=== PATIENT | female | born 1990 | race Caucasian/White ===

== ENCOUNTER 2016-10-14 16:36 | Emergency (ER) | payer OTHER ==
[~2016-10-14] VITALS: Ht 154.9 cm; Wt 88.7 kg
[~2016-10-14 16:36] MED LIST: AUGMENTIN500 MG PO; IBUPROFEN800 MG PO; KEFLEX750 MG PO; Motrin PO; NAPROSYN500 MG PO; NATALCARE RX1 TABLE1 PO; NOHOMEMEDS; NORCO 5/3251 TABLET PO; PRENATAL TABLE1 EAC3 PO; PROMETHAZINE HC25 M1 PO; RANITIDINE PO; SPRINTEC1 EACH PO; TORADOL10 MG PO; TYLENOL EXTRA500 MG PO; ULTRAM50 MG PO; ZOFRAN ODT4 MG PO; ZOFRAN4 MG PO
[2016-10-14 17:10] LABS: HEMATOCRIT 42.4 % (36.0-46.0); MCH 29.8 PG (29.0-34.0); MCHC 33.5 G/DL (30.0-36.0); MCV 89.1 FL (83-99); RBC DIS.WIDTH-CV 12.3 % (11.8-14.6); RBC DIS.WIDTH-SD 40.4 % (39-53); RED BLOOD COUNT 4.76 M/uL (3.80-5.20); WHITE BLOOD COUNT 12.2 K/uL (4.1-10.2)
[2016-10-14 17:18] LABS: CHLORIDE 103 mEq/L (99-109); SODIUM 136 mEq/L (136-147)
[2016-10-14 17:20] LABS: GLUCOSE 112 mg/dL (70-99)
[2016-10-14 17:22] LABS: ANION GAP 9 MEQ/L (2-14); TOTAL BILIRUBIN 0.3 mg/dL (0.0-1.0)
[2016-10-14 17:24] LABS: ALKALINE PHOSPHATASE 75 IU/L (3-129); GFR ESTIMATE (CALCULATED) > 59 mL/min/
[2016-10-14 17:25] LABS: UREA NITROGEN (BUN) 7 mg/dL (9-23)
[2016-10-14 17:33] LABS: QUANTITATIVE HCG < 4.0 MIU/ML
[2016-10-14 17:34] LABS: ADD MIUA? YES; BILIRUBIN NEGATIVE; BLOOD NEGATIVE; COLOR YELLOW ((YELLOW)); GLUCOSE (STRIP) NEGATIVE; KETONES NEGATIVE; LEUKOCYTES NEGATIVE; NITRITE NEGATIVE; PROTEIN (STRIP) 30; SPECIFIC GRAVITY 1.021 (1.000-1.030); UROBILINOGEN 0.2 MG/DL (0.2-1.0)
[2016-10-14 17:40] LABS: BACTERIA RARE /HPF; EPITHELIAL CELLS 2+ /HPF; MUCUS TRACE /LPF; UCUL ADDED? NO; WHITE BLOOD CELLS 0-5 /HPF (0-5)
[2016-10-14 17:48] LABS: LIPASE 10 U/L (1.0-51.0)
[2016-10-14 17:53] LABS: MEAN PLAT.VOLUME 12.5 uM^3 (9.5-12.4); PLATELET COUNT 205 K/uL (156-360)
[2016-10-14] MEDS ORDERED: ZOFRAN ODT4 MG PO (19:52)
[2016-10-14] MEDS ORDERED: BENTYL20 MG PO (19:52)
[2016-10-14] MEDS ORDERED: MOTRIN800 MG PO (20:12)
[2016-10-14] MEDS ORDERED: NORCO 7.5/321 TABLET PO (20:51)
[2016-10-14 21:02] VITALS: BP 122/67
== END 2016-10-14 21:02 | disposition home or self-care (01) ==
LOC: EME 16:36 → RME 16:36
DX: B34.9 Viral infection, unspecified (principal); K52.9 Noninfective gastroenteritis and colitis, unspecified; N20.0 Calculus of kidney; R31.29 Other microscopic hematuria; K21.9 Gastro-esophageal reflux disease without esophagitis; Z87.442 Personal history of urinary calculi
CPT/HCPCS: 74022; 74176; 80053; 81003; 83690; 84702; 85025; 85027; 87077; 87086; 87186; 87651 90; 99281; 99284; J0500

== ENCOUNTER 2016-12-21 18:55 | Inpatient (IN) | payer OTHER ==
[~2016-12-21] VITALS: Ht 154.9 cm; Wt 86.2 kg
[~2016-12-21 18:55] MED LIST changes: +BENTYL20 MG PO; +MOTRIN800 MG PO; +NORCO 7.5/321 TABLET PO
[2016-12-21 20:00] LABS: HEMATOCRIT 41.6 % (36.0-46.0); MCH 29.6 PG (29.0-34.0); MCHC 32.9 G/DL (30.0-36.0); MCV 89.8 FL (83-99); RBC DIS.WIDTH-CV 13.2 % (11.8-14.6); RBC DIS.WIDTH-SD 43.1 % (39-53); RED BLOOD COUNT 4.63 M/uL (3.80-5.20); WHITE BLOOD COUNT 21.4 K/uL (4.1-10.2)
[2016-12-21 20:15] LABS: ADD MIUA? YES; BILIRUBIN NEGATIVE; BLOOD NEGATIVE; COLOR YELLOW ((YELLOW)); GLUCOSE (STRIP) NEGATIVE; KETONES NEGATIVE; LEUKOCYTES SMALL; PROTEIN (STRIP) 30; SPECIFIC GRAVITY 1.016 (1.000-1.030); UROBILINOGEN 0.2 MG/DL (0.2-1.0)
[2016-12-21 20:19] LABS: CHLORIDE 101 mEq/L (99-109); SODIUM 134 mEq/L (136-147)
[2016-12-21 20:21] LABS: GLUCOSE 120 mg/dL (70-99)
[2016-12-21 20:22] LABS: ANION GAP 13 MEQ/L (2-14)
[2016-12-21 20:23] LABS: TOTAL BILIRUBIN 0.6 mg/dL (0.0-1.0)
[2016-12-21 20:23] LABS: EPITHELIAL CELLS RARE /HPF; MUCUS 1+ /LPF; UNCLASSIFIED CRYSTALS 2+ /HPF; WHITE BLOOD CELLS 30-40 /HPF (0-5)
[2016-12-21 20:25] LABS: ALKALINE PHOSPHATASE 76 IU/L (3-129); GFR ESTIMATE (CALCULATED) > 59 mL/min/
[2016-12-21 20:26] LABS: UREA NITROGEN (BUN) 7 mg/dL (9-23)
[2016-12-21 20:28] LABS: LIPASE 3 U/L (1.0-51.0)
[2016-12-21 20:35] LABS: QUANTITATIVE HCG < 4.0 MIU/ML
[2016-12-21 20:39] LABS: NITRITE POSITIVE
[2016-12-21 20:40] LABS: BACTERIA 4+ /HPF; UCUL ADDED? YES
[2016-12-21 21:06] LABS: HEMATOLOGY COMMENT 1 SN; MEAN PLAT.VOLUME 12.4 uM^3 (9.5-12.4); PLAT.SUFFICIENCY ADEQUATE; PLATELET COUNT 205 K/uL (156-360)
[2016-12-22] MEDS ORDERED: SPRINTEC1 EACH PO (00:51)
[2016-12-22] MEDS ORDERED: CITALOPRAM HBR10 MG PO (00:52)
[2016-12-22] MEDS ORDERED: TRAMADOL HCL50 MG PO (00:52)
[2016-12-22 03:06] VITALS: BP 108/59
[2016-12-22 07:26] VITALS: BP 94/53
[2016-12-22 09:24] LABS: HEMATOCRIT 37.5 % (36.0-46.0); MCH 30.2 PG (29.0-34.0); MCHC 33.1 G/DL (30.0-36.0); MCV 91.5 FL (83-99); MEAN PLAT.VOLUME 11.8 uM^3 (9.5-12.4); PLATELET COUNT 170 K/uL (156-360); RBC DIS.WIDTH-CV 13.2 % (11.8-14.6); RBC DIS.WIDTH-SD 44.4 % (39-53); WHITE BLOOD COUNT 14.8 K/uL (4.1-10.2)
[2016-12-22 09:25] LABS: CHLORIDE 105 mEq/L (99-109); POTASSIUM 3.9 mEq/L (3.7-5.4); SODIUM 138 mEq/L (136-147)
[2016-12-22 09:27] LABS: GLUCOSE 130 mg/dL (70-99)
[2016-12-22 09:29] LABS: ANION GAP 9 MEQ/L (2-14)
[2016-12-22 09:31] LABS: GFR ESTIMATE (CALCULATED) > 59 mL/min/
[2016-12-22 09:32] LABS: UREA NITROGEN (BUN) 7 mg/dL (9-23)
[2016-12-22 12:02] VITALS: BP 124/67
[2016-12-22 17:04] VITALS: BP 93/62
[2016-12-22 19:17] VITALS: BP 100/60
[2016-12-22 23:03] VITALS: BP 100/51
[2016-12-23 03:17] VITALS: BP 94/53
[2016-12-23 07:49] LABS: EOSINOPHIL (%) 0.1 % (0-5); HEMATOCRIT 32.8 % (36.0-46.0); IMMATURE GRANULOCYTE (%) 0.5 % (0.0-0.7); IMMATURE GRANULOCYTE COUNT 0.1 K/uL; INSTRUMENT ABS NEUTROPHIL CT 12.2 K/uL; LYMPHOCYTE COUNT 1.9 K/uL (1.0-2.8); MCH 29.7 PG (29.0-34.0); MCHC 32.6 G/DL (30.0-36.0); MCV 91.1 FL (83-99); MEAN PLAT.VOLUME 12.6 uM^3 (9.5-12.4); MONOCYTE (%) 7.3 % (3-12); MONOCYTE COUNT 1.1 K/uL (0-0.8); NEUTROPHIL (%) 79.4 % (45-76); NEUTROPHIL COUNT 12.2 K/uL (1.8-6.4); PLATELET COUNT 165 K/uL (156-360); RBC DIS.WIDTH-CV 13.1 % (11.8-14.6); RBC DIS.WIDTH-SD 43.4 % (39-53); WHITE BLOOD COUNT 15.3 K/uL (4.1-10.2)
[2016-12-23 08:00] VITALS: BP 103/66
[2016-12-23 08:34] LABS: CHLORIDE 106 mEq/L (99-109); SODIUM 138 mEq/L (136-147)
[2016-12-23 08:37] LABS: ANION GAP 7 MEQ/L (2-14)
[2016-12-23 08:39] LABS: GFR ESTIMATE (CALCULATED) > 59 mL/min/
[2016-12-23 08:40] LABS: UREA NITROGEN (BUN) 4 mg/dL (9-23)
[2016-12-23 08:43] LABS: GLUCOSE 77 mg/dL (70-99)
[2016-12-23 15:55] VITALS: BP 99/58
[2016-12-23 22:00] VITALS: BP 92/57
[2016-12-23 23:47] VITALS: BP 103/65
[2016-12-24 04:13] VITALS: BP 100/64
[2016-12-24] MEDS ORDERED: BACTRIM,SEPT1 TABLET PO (07:33)
[2016-12-24 09:01] LABS: HEMATOCRIT 32.9 % (36.0-46.0); MCH 30.1 PG (29.0-34.0); MCHC 32.2 G/DL (30.0-36.0); MCV 93.5 FL (83-99); MEAN PLAT.VOLUME 13.1 uM^3 (9.5-12.4); PLATELET COUNT 171 K/uL (156-360); RBC DIS.WIDTH-CV 13.4 % (11.8-14.6); RBC DIS.WIDTH-SD 46.3 % (39-53); RED BLOOD COUNT 3.52 M/uL (3.80-5.20)
[2016-12-24 09:08] LABS: WHITE BLOOD COUNT 9.9 K/uL (4.1-10.2)
[2016-12-24 11:18] LABS: ANION GAP 8 MEQ/L (2-14); CHLORIDE 102 MEQ/L (99-109); GFR ESTIMATE (CALCULATED) > 59 mL/min/; GLUCOSE 62 mg/dL (70-99); POTASSIUM 3.9 MEQ/L (3.7-5.4); SAMPLE HEMOLYSIS CHECK 0; SAMPLE ICTERIC CHECK 0; SAMPLE LIPEMIA CHECK 0; SODIUM 140 MEQ/L (136-147); UREA NITROGEN (BUN) 6 mg/dL (9-23)
== END 2016-12-24 11:20 | disposition home or self-care (01) | DRG 854 ==
LOC: EXP 18:55 → EME 18:55 → EDOF 12-22 01:45 → 2EASTP 12-22 02:05 → EDOF 12-22 02:05 → 2EASTP 12-22 03:04
PROVIDERS: Hospitalist; Internal Medicine
PROC: 0FT44ZZ Resection of Gallbladder, Percutaneous Endoscopic Approach (ICD-10-PCS; principal; 2016-12-22)
DX: A41.9 Sepsis, unspecified organism (principal); K80.10 Calculus of gallbladder with chronic cholecystitis without obstruction; N39.0 Urinary tract infection, site not specified; B96.20 Unspecified Escherichia coli [E. coli] as the cause of diseases classified elsewhere; E66.01 Morbid (severe) obesity due to excess calories; N20.0 Calculus of kidney; Z68.35 Body mass index [BMI] 35.0-35.9, adult; Z91.19 Patient's noncompliance with other medical treatment and regimen
CPT/HCPCS: 74176; 76705; 80048; 80053; 81003; 83605; 83690; 84702; 85025; 85027; 87040; 87077; 87086; 87186; 88304; 99281; 99285; J0131; J0330; J0690; J0696; J1100; J1170; J1644; J1885; J2250; J2270; J2405; J2710; J3010; J7030; J7050

== ENCOUNTER 2017-01-23 06:25 | Emergency (ER) | payer OTHER ==
[~2017-01-23] VITALS: Ht 154.9 cm; Wt 85.3 kg
[~2017-01-23 06:25] MED LIST changes: +BACTRIM,SEPT1 TABLET PO; +CITALOPRAM HBR10 MG PO; +TRAMADOL HCL50 MG PO
[2017-01-23] MEDS ORDERED: PEN-VEE K,VEET500 MG PO (06:53)
[2017-01-23 07:07] VITALS: BP 122/79
== END 2017-01-23 07:08 | disposition home or self-care (01) ==
LOC: EME 06:25
DX: J02.0 Streptococcal pharyngitis (principal); E66.01 Morbid (severe) obesity due to excess calories; Z87.442 Personal history of urinary calculi
CPT/HCPCS: 99281; 99283

== ENCOUNTER 2017-03-14 15:28 | Emergency (ER) | payer OTHER ==
[~2017-03-14] VITALS: Ht 154.9 cm; Wt 85.0 kg
[~2017-03-14 15:28] MED LIST changes: +PEN-VEE K,VEET500 MG PO
[2017-03-14 16:23] LABS: ADD MIUA? YES; BILIRUBIN NEGATIVE; BLOOD NEGATIVE; COLOR YELLOW ((YELLOW)); GLUCOSE (STRIP) NEGATIVE; KETONES NEGATIVE; LEUKOCYTES NEGATIVE; NITRITE NEGATIVE; PROTEIN (STRIP) NEGATIVE; SPECIFIC GRAVITY 1.019 (1.000-1.030)
[2017-03-14 16:27] LABS: BACTERIA RARE /HPF; EPITHELIAL CELLS 1+ /HPF; MUCUS TRACE /LPF; RED BLOOD CELLS 0-5 /HPF (0-5); UCUL ADDED? NO; WHITE BLOOD CELLS 0-5 /HPF (0-5)
[2017-03-14 16:36] LABS: HEMATOCRIT 37.5 % (36.0-46.0); MCH 29.8 PG (29.0-34.0); MCHC 33.1 G/DL (30.0-36.0); MCV 90.1 FL (83-99); RBC DIS.WIDTH-CV 13.2 % (11.8-14.6); RBC DIS.WIDTH-SD 43.7 % (39-53); RED BLOOD COUNT 4.16 M/uL (3.80-5.20); WHITE BLOOD COUNT 11.1 K/uL (4.1-10.2)
[2017-03-14 16:44] LABS: CHLORIDE 102 mEq/L (99-109); POTASSIUM 3.8 mEq/L (3.7-5.4); SODIUM 135 mEq/L (136-147)
[2017-03-14 16:46] LABS: GLUCOSE 71 mg/dL (70-99)
[2017-03-14 16:48] LABS: ANION GAP 9 MEQ/L (2-14); TOTAL BILIRUBIN 0.4 mg/dL (0.0-1.0)
[2017-03-14 16:50] LABS: ALKALINE PHOSPHATASE 63 IU/L (3-129); GFR ESTIMATE (CALCULATED) > 59 mL/min/
[2017-03-14 16:51] LABS: UREA NITROGEN (BUN) 7 mg/dL (9-23)
[2017-03-14 16:53] LABS: LIPASE 7 U/L (1.0-51.0)
[2017-03-14 16:59] LABS: QUANTITATIVE HCG < 4.0 MIU/ML
[2017-03-14 17:19] LABS: MEAN PLAT.VOLUME 12.4 uM^3 (9.5-12.4); PLATELET COUNT 251 K/uL (156-360)
[2017-03-14 19:41] VITALS: BP 135/82
== END 2017-03-14 19:42 | disposition home or self-care (01) ==
LOC: EME 15:28
PROVIDERS: Physician Assistant
DX: K43.2 Incisional hernia without obstruction or gangrene (principal); Z90.49 Acquired absence of other specified parts of digestive tract; Z87.442 Personal history of urinary calculi
CPT/HCPCS: 74177; 80053; 81003; 83690; 84702; 85027; 99281; 99284

== ENCOUNTER 2017-04-12 07:36 | Day surgery (SDC) | payer OTHER ==
[~2017-04-12] VITALS: Ht 154.9 cm; Wt 84.0 kg
[~2017-04-12 07:36] MED LIST changes: +CELEXA10 MG PO; +DIFLUCAN100 MG PO
[2017-04-12] MEDS ORDERED: WELLBUTRIN XL150 MG PO (07:59)
[2017-04-12 08:01] VITALS: BP 125/81
[2017-04-12 09:20] LABS: INTERNAL CONTROL VALID? YES
[2017-04-12 13:35] VITALS: BP 137/71
[2017-04-12] MEDS ORDERED: PERCOCET 5/31 TABLET PO (13:42)
[2017-04-12 14:45] VITALS: BP 118/71
[2017-04-12 15:58] VITALS: BP 126/70
== END 2017-04-12 16:10 | disposition home or self-care (01) ==
LOC: SDC
PROVIDERS: Anesthesiology
PROC: 0WUF4JZ Supplement Abdominal Wall with Synthetic Substitute, Percutaneous Endoscopic Approach (ICD-10-PCS; principal; 2017-04-12)
DX: K43.0 Incisional hernia with obstruction, without gangrene (principal); N20.0 Calculus of kidney; F41.8 Other specified anxiety disorders; K21.9 Gastro-esophageal reflux disease without esophagitis; Z68.35 Body mass index [BMI] 35.0-35.9, adult; Z87.891 Personal history of nicotine dependence
CPT/HCPCS: 74000; 84703; C1781; J0131; J0690; J1100; J1170; J1885; J2250; J2405; J3010

== ENCOUNTER 2017-09-12 10:39 | Emergency (ER) | payer OTHER ==
[~2017-09-12] VITALS: Ht 154.9 cm; Wt 84.7 kg
[~2017-09-12 10:39] MED LIST changes: +AUGMENTIN875 MG PO; +PERCOCET 5/31 TABLET PO; +WELLBUTRIN XL150 MG PO
[2017-09-12 11:21] LABS: HEMATOCRIT 38.8 % (36.0-46.0); HEMOGLOBIN 13.1 G/DL (11.9-15.5); MCH 30.5 PG (29.0-34.0); MCHC 33.8 G/DL (30.0-36.0); MCV 90.4 FL (83-99); RBC DIS.WIDTH-CV 12.4 % (11.8-14.6); RBC DIS.WIDTH-SD 41.1 % (39-53); RED BLOOD COUNT 4.29 M/uL (3.80-5.20); WHITE BLOOD COUNT 11.4 K/uL (4.1-10.2)
[2017-09-12 11:29] LABS: CHLORIDE 102 mEq/L (99-109); POTASSIUM 4.1 mEq/L (3.7-5.4); SODIUM 137 mEq/L (136-147)
[2017-09-12 11:31] LABS: GLUCOSE 100 mg/dL (70-99)
[2017-09-12 11:35] LABS: CREATININE 0.8 mg/dL (0.6-1.3); GFR ESTIMATE (CALCULATED) > 59 mL/min/; UREA NITROGEN (BUN) 6 mg/dL (9-23)
[2017-09-12 11:42] LABS: APPEARANCE SL.HAZY ((CLEAR)); BILIRUBIN NEGATIVE; BLOOD SMALL; COLOR YELLOW ((YELLOW)); GLUCOSE (STRIP) NEGATIVE; KETONES NEGATIVE; LEUKOCYTES NEGATIVE; NITRITE NEGATIVE; PROTEIN (STRIP) 30; SPECIFIC GRAVITY 1.024 (1.000-1.030)
[2017-09-12 11:46] LABS: QUANTITATIVE HCG < 4.0 MIU/ML
[2017-09-12 11:47] LABS: BACTERIA RARE /HPF; EPITHELIAL CELLS 1+ /HPF; MUCUS 1+ /LPF; UCUL ADDED? NO; WHITE BLOOD CELLS 0-5 /HPF (0-5)
[2017-09-12 12:45] LABS: PLAT.SUFFICIENCY ADEQUATE; PLATELET COUNT 180 K/uL (156-360)
[2017-09-12 14:20] LABS: SOURCE SWAB
[2017-09-12] MEDS ORDERED: MACROBID100 MG PO (16:33)
[2017-09-12] MEDS ORDERED: DIFLUCAN150 MG PO (16:34)
[2017-09-12 16:53] VITALS: BP 121/79
== END 2017-09-12 16:55 | disposition home or self-care (01) ==
LOC: EME 10:39
PROVIDERS: Physician Assistant
DX: N39.0 Urinary tract infection, site not specified (principal); B37.3 Candidiasis of vulva and vagina
CPT/HCPCS: 76856; 80048; 81003; 84702; 85027; 87210; 87491; 87502; 87591; 99281; 99284

== ENCOUNTER 2017-09-23 17:34 | Emergency (ER) | payer OTHER ==
[~2017-09-23] VITALS: Ht 154.9 cm; Wt 87.6 kg
[~2017-09-23 17:34] MED LIST changes: +DIFLUCAN150 MG PO; +MACROBID100 MG PO
[2017-09-23 18:14] LABS: HEMATOCRIT 40.5 % (36.0-46.0); HEMOGLOBIN 13.9 G/DL (11.9-15.5); MCHC 34.3 G/DL (30.0-36.0); MCV 90.2 FL (83-99); RBC DIS.WIDTH-CV 12.5 % (11.8-14.6); RBC DIS.WIDTH-SD 40.8 % (39-53); RED BLOOD COUNT 4.49 M/uL (3.80-5.20); WHITE BLOOD COUNT 11.3 K/uL (4.1-10.2)
[2017-09-23 18:18] LABS: PLATELET COUNT 265 K/uL (156-360)
[2017-09-23 18:20] LABS: ALBUMIN 4.2 g/dL (3.2-4.8); CHLORIDE 104 mEq/L (99-109); SODIUM 139 mEq/L (136-147)
[2017-09-23 18:22] LABS: GLUCOSE 77 mg/dL (70-99); TOTAL PROTEIN 7.8 g/dL (6.4-8.3)
[2017-09-23 18:24] LABS: TOTAL BILIRUBIN 0.2 mg/dL (0.0-1.0)
[2017-09-23 18:26] LABS: ALKALINE PHOSPHATASE 74 IU/L (3-129); CREATININE 0.7 mg/dL (0.6-1.3); GFR ESTIMATE (CALCULATED) > 59 mL/min/
[2017-09-23 18:27] LABS: AST (GOT) 14 IU/L (2-34); UREA NITROGEN (BUN) 9 mg/dL (9-23)
[2017-09-23 18:29] LABS: ALT (GPT) 13 IU/L (3-49)
[2017-09-23 18:34] LABS: QUANTITATIVE HCG < 4.0 MIU/ML
[2017-09-23 20:31] LABS: APPEARANCE CLEAR ((CLEAR)); BILIRUBIN NEGATIVE; BLOOD NEGATIVE; COLOR YELLOW ((YELLOW)); GLUCOSE (STRIP) NEGATIVE; KETONES NEGATIVE; LEUKOCYTES NEGATIVE; NITRITE NEGATIVE; PROTEIN (STRIP) NEGATIVE; SPECIFIC GRAVITY 1.041 (1.000-1.030); UCUL ADDED? NO; UROBILINOGEN 0.2 MG/DL (0.2-1.0)
[2017-09-23] MEDS ORDERED: MOTRIN600 MG PO (20:45)
[2017-09-23 20:56] VITALS: BP 138/78
== END 2017-09-23 20:57 | disposition home or self-care (01) ==
LOC: EME 17:34
DX: R10.84 Generalized abdominal pain (principal); R14.0 Abdominal distension (gaseous); R11.0 Nausea; N20.0 Calculus of kidney; Z90.49 Acquired absence of other specified parts of digestive tract; Z87.442 Personal history of urinary calculi
CPT/HCPCS: 74177; 80053; 81003; 84702; 85027; 99281; 99284; J1885; J7030

== ENCOUNTER 2018-02-26 10:57 | Emergency (ER) | payer OTHER ==
[~2018-02-26] VITALS: Ht 154.9 cm; Wt 84.5 kg
[~2018-02-26 10:57] MED LIST changes: +MOTRIN600 MG PO
[2018-02-26 12:23] LABS: HEMATOCRIT 38.3 % (36.0-46.0); HEMOGLOBIN 13.3 G/DL (11.9-15.5); MCH 30.6 PG (29.0-34.0); MCHC 34.7 G/DL (30.0-36.0); PLATELET COUNT 202 K/uL (156-360); RBC DIS.WIDTH-CV 12.3 % (11.8-14.6); RBC DIS.WIDTH-SD 39.6 % (39-53); RED BLOOD COUNT 4.35 M/uL (3.80-5.20); WHITE BLOOD COUNT 7.7 K/uL (4.1-10.2)
[2018-02-26 12:31] LABS: CHLORIDE 104 mEq/L (99-109); POTASSIUM 4.1 mEq/L (3.7-5.4); SODIUM 138 mEq/L (136-147)
[2018-02-26 12:33] LABS: GLUCOSE 77 mg/dL (70-99)
[2018-02-26 12:37] LABS: CREATININE 0.7 mg/dL (0.6-1.3); GFR ESTIMATE (CALCULATED) > 59 mL/min/; UREA NITROGEN (BUN) 10 mg/dL (9-23)
[2018-02-26 12:43] LABS: TROP-I INTERPRETATION NEGATIVE; TROPONIN-I < 0.01 ng/mL (0.0-0.30)
[2018-02-26 15:01] LABS: TROP-I INTERPRETATION NEGATIVE; TROPONIN-I < 0.01 ng/mL (0.0-0.30)
[2018-02-26] MEDS ORDERED: MOTRIN800 MG PO (15:23)
[2018-02-26 15:44] VITALS: BP 114/81
== END 2018-02-26 15:47 | disposition home or self-care (01) ==
LOC: EME 10:57
PROVIDERS: Emergency Medicine
DX: R07.89 Other chest pain (principal); I49.8 Other specified cardiac arrhythmias
CPT/HCPCS: 71046; 80048; 84484; 85027; 85379; 93005; 99281; 99284